=== PATIENT | male | born 1950 | race Caucasian/White ===

== ENCOUNTER 2023-09-21 20:25 | Inpatient (IN) | payer OTHER ==
[2023-09-21] MEDS ORDERED: Ondansetron PF 4 MG/2 ML Vial IVP PRN (22:36)
[2023-09-21] MEDS ORDERED: Dextrose 50% Abboject 50 ML SYRINGE SLOW IVP PRN (22:36)
[2023-09-21] MEDS ORDERED: Senokot S 8.6-50 MG TAB PO PRN (22:36)
[2023-09-21] MEDS ORDERED: Dextrose 5% in Water 1,000 ML IV PRN (22:36)
[2023-09-21] MEDS ORDERED: Glucagon 1 MG/ML KIT IM PRN (22:36)
[2023-09-21] MEDS ORDERED: Calcium Carbonate 500 MG ChewTAB PO PRN (22:36)
[2023-09-21] MEDS ORDERED: Ipratropium/Albuterol 3 ML NEB NEB PRN (22:39)
[2023-09-21] MEDS: methylPREDNISolone Sod Succ 40 MG VIAL IVP SCH (23:23)
[2023-09-21 23:24] LABS: Troponin I Less than 0.010 ng/mL (< 0.028)
[2023-09-21] MEDS: Lisinopril 10 MG TAB PO SCH (23:31)
[2023-09-21] MEDS: Azithromycin 250 MG TAB PO SCH (23:32)
[2023-09-21] MEDS: HumaLOG 300 UNITS/3 ML VIAL SC PRN (23:35)
[2023-09-21 23:37] VITALS: BMI 39.0
[2023-09-22] MEDS: hydrOXYzine 25 MG TAB PO SCH (01:11)
[2023-09-22] MEDS: Ipratropium/Albuterol 3 ML NEB NEB SCH (01:25)
[2023-09-22 03:34] LABS: Anion Gap 17 mmol/L (10-20); BUN (Urea Nitrogen) 18 mg/dL (8.4-25.7); Calc. Creatinine Clearance 122 mL/min (70-130); Calcium 8.8 mg/dL (7.8-10.44); Carbon Dioxide 20 mmol/L (23-31); Chloride 103 mmol/L (98-107); Estimated GFR 81; Glucose 229 mg/dL (83-110); Potassium 4.5 mmol/L (3.5-5.1); Sodium 135 mmol/L (136-145)
[2023-09-22] MEDS: Levothyroxine Sodium 25 MCG TAB PO SCH (05:38)
[2023-09-22] MEDS: metFORMIN 500 MG TAB PO SCH (08:37)
[2023-09-22] MEDS: guaiFENesin ER 600 MG TAB PO SCH (08:39)
[2023-09-22] MEDS: Aspirin 81 mg Enteric Coated Tablet PO SCH (08:39)
[2023-09-22] MEDS: Venlafaxine HCl XR 75 MG CAP PO SCH (08:40)
[2023-09-22] MEDS: Acetylcysteine 800 MG/4 ML VIAL PO SCH (08:41)
[2023-09-22] MEDS: Enoxaparin 40 MG (0.4 mL) SYRINGE SC SCH (08:43)
[2023-09-22 08:55] LABS: Hematocrit 47.7 % (38.8-50.0); Hemoglobin 15.6 g/dL (13.5-17.5); Mean Corpuscular HGB CONC 32.7 g/dL (32.0-36.0); Mean Corpuscular Hemoglobin 31.7 pg (27.0-33.0); Mean Platelet Volume 10.1 fl (7.4-10.4); Platelet Count 310 10x3/uL (150-450); RBC Distribution Width 13.5 % (11.5-14.5); Red Blood Cell (RBC) Count 4.92 10x6/uL (4.32-5.72); White Blood Cell (WBC) Count 14.4 10x3/uL (3.5-10.5)
[2023-09-22 09:14] LABS: MDiff Complete? YES
[2023-09-22 09:17] LABS: Band 1 % (5-11); Lymphocytes 4 % (21-51); Monocytes 1 % (0-10); Neutrophil 94 % (42-75)
[2023-09-22 09:18] LABS: Platelet Adequacy Comment Appears Adequate; RBC Morph Comment Within Normal Limits
[2023-09-22] MEDS: Mometasone/Formoterol 200/5 60 PUFF INH SCH (09:20)
[2023-09-22] MEDS: Benztropine 1 MG TAB PO SCH (22:13)
[2023-09-22] MEDS: Lisinopril 10 MG TAB PO SCH (22:13)
[2023-09-23] MEDS: Perphenazine 2 MG TAB PO SCH (00:02)
[2023-09-23 05:28] LABS: Anion Gap 16 mmol/L (10-20); BUN (Urea Nitrogen) 32 mg/dL (8.4-25.7); Calc. Creatinine Clearance 99 mL/min (70-130); Carbon Dioxide 22 mmol/L (23-31); Chloride 103 mmol/L (98-107); Estimated GFR 63; Glucose 270 mg/dL (83-110); Potassium 5.8 mmol/L (3.5-5.1); Sodium 135 mmol/L (136-145)
[2023-09-23 05:50] LABS: #Monocytes 0.6 10x3/uL (0.0-1.1); #Neutrophils 14.6 10x3/uL (1.5-8.4); %Basophils 0.1 % (0.0-2.0); %Lymphocytes 4.7 % (18.0-47.0); %Monocytes 3.5 % (0.0-10.0); %Neutrophils 91.1 % (40.0-75.0); Hematocrit 44.5 % (38.8-50.0); Hemoglobin 14.3 g/dL (13.5-17.5); Mean Corpuscular HGB CONC 32.1 g/dL (32.0-36.0); Mean Corpuscular Hemoglobin 31.2 pg (27.0-33.0); Mean Corpuscular Volume 97.2 fl (81.2-95.1); Mean Platelet Volume 10.4 fl (7.4-10.4); Platelet Count 322 10x3/uL (150-450); RBC Distribution Width 13.8 % (11.5-14.5); Red Blood Cell (RBC) Count 4.58 10x6/uL (4.32-5.72); White Blood Cell (WBC) Count 16.1 10x3/uL (3.5-10.5)
[2023-09-23] MEDS: Sodium Polystyrene Sulfonate 15 GM (60 mL) BOT PO SCH (08:00)
[2023-09-23] MEDS: Acetaminophen 325 MG TAB PO PRN (09:10)
[2023-09-23] MEDS: Gabapentin 300 MG CAP PO SCH (15:25)
[2023-09-23] MEDS: Benzonatate 100 MG CAP PO SCH (15:28)
[2023-09-23 19:38] LABS: Anion Gap 14 mmol/L (10-20); BUN (Urea Nitrogen) 32 mg/dL (8.4-25.7); Calc. Creatinine Clearance 112 mL/min (70-130); Calcium 8.6 mg/dL (7.8-10.44); Carbon Dioxide 25 mmol/L (23-31); Chloride 100 mmol/L (98-107); Estimated GFR 73; Glucose 271 mg/dL (83-110); Potassium 4.8 mmol/L (3.5-5.1); Sodium 134 mmol/L (136-145)
[2023-09-24 05:44] LABS: #Monocytes 0.7 10x3/uL (0.0-1.1); #Neutrophils 12.9 10x3/uL (1.5-8.4); %Basophils 0.1 % (0.0-2.0); %Lymphocytes 5.4 % (18.0-47.0); %Monocytes 4.6 % (0.0-10.0); %Neutrophils 88.8 % (40.0-75.0); Hematocrit 46.8 % (38.8-50.0); Hemoglobin 15.1 g/dL (13.5-17.5); Mean Corpuscular HGB CONC 32.3 g/dL (32.0-36.0); Mean Corpuscular Hemoglobin 32.4 pg (27.0-33.0); Mean Corpuscular Volume 100.4 fl (81.2-95.1); Mean Platelet Volume 10.8 fl (7.4-10.4); Platelet Count 302 10x3/uL (150-450); Red Blood Cell (RBC) Count 4.66 10x6/uL (4.32-5.72); White Blood Cell (WBC) Count 14.5 10x3/uL (3.5-10.5)
[2023-09-24 05:55] LABS: Anion Gap 17 mmol/L (10-20); BUN (Urea Nitrogen) 29 mg/dL (8.4-25.7); Calc. Creatinine Clearance 114 mL/min (70-130); Carbon Dioxide 25 mmol/L (23-31); Chloride 101 mmol/L (98-107); Estimated GFR 74; Glucose 271 mg/dL (83-110); Potassium 5.9 mmol/L (3.5-5.1); Sodium 137 mmol/L (136-145)
[2023-09-24 06:00] LABS: Magnesium 2.6 mg/dL (1.6-2.6)
[2023-09-24] MEDS: Venlafaxine HCl XR 75 MG CAP PO SCH (09:21)
[2023-09-24] MEDS: Amlodipine 5 MG TAB PO SCH (09:22)
[2023-09-24 16:04] LABS: PTT 22.2 sec (22.0-33.0); Prothrombin Time 10.4 sec (9.5-12.1)
[2023-09-24 16:09] LABS: Troponin I 0.025 ng/mL (< 0.028)
[2023-09-24 16:22] LABS: Anion Gap 19 mmol/L (10-20); BUN (Urea Nitrogen) 31 mg/dL (8.4-25.7); Calc. Creatinine Clearance 113 mL/min (70-130); Calcium 8.7 mg/dL (7.8-10.44); Carbon Dioxide 19 mmol/L (23-31); Chloride 102 mmol/L (98-107); Estimated GFR 74; Glucose 215 mg/dL (83-110); Sodium 134 mmol/L (136-145)
[2023-09-24 16:32] LABS: Potassium 5.2 mmol/L (3.5-5.1)
[2023-09-24 17:53] LABS: Troponin I Less than 0.010 ng/mL (< 0.028)
[2023-09-24] MEDS: Gabapentin 300 MG CAP PO SCH (22:17)
[2023-09-24] MEDS: Benzonatate 100 MG CAP PO SCH (22:46)
[2023-09-25 05:10] LABS: #Monocytes 1.6 10x3/uL (0.0-1.1); #Neutrophils 9.7 10x3/uL (1.5-8.4); %Basophils 0.2 % (0.0-2.0); %Lymphocytes 19.2 % (18.0-47.0); %Neutrophils 69.2 % (40.0-75.0); Hematocrit 44.6 % (38.8-50.0); Hemoglobin 14.4 g/dL (13.5-17.5); Mean Corpuscular HGB CONC 32.3 g/dL (32.0-36.0); Mean Corpuscular Hemoglobin 32.6 pg (27.0-33.0); Mean Corpuscular Volume 100.9 fl (81.2-95.1); Mean Platelet Volume 10.6 fl (7.4-10.4); Platelet Count 259 10x3/uL (150-450); RBC Distribution Width 13.7 % (11.5-14.5); Red Blood Cell (RBC) Count 4.42 10x6/uL (4.32-5.72); White Blood Cell (WBC) Count 14.1 10x3/uL (3.5-10.5)
[2023-09-25 05:14] LABS: Anion Gap 11 mmol/L (10-20); BUN (Urea Nitrogen) 32 mg/dL (8.4-25.7); Calc. Creatinine Clearance 121 mL/min (70-130); Calcium 8.4 mg/dL (7.8-10.44); Carbon Dioxide 29 mmol/L (23-31); Chloride 101 mmol/L (98-107); Estimated GFR 80; Glucose 128 mg/dL (83-110); Magnesium 2.3 mg/dL (1.6-2.6); Potassium 4.3 mmol/L (3.5-5.1); Sodium 137 mmol/L (136-145)
[2023-09-25] MEDS: Gabapentin 300 MG CAP PO SCH (08:59)
[2023-09-25] MEDS: Benzonatate 100 MG CAP PO SCH (08:59)
[2023-09-25] MEDS: predniSONE 20 MG TAB PO SCH (09:00)
[2023-09-25] MEDS: Baclofen 10 MG TAB PO SCH (10:18)
[2023-09-25] MEDS: Lidocaine 4% Patch TD SCH (10:18)
[2023-09-25] MEDS: Lisinopril 5 MG TAB PO SCH (16:10)
[2023-09-25] MEDS: Atorvastatin Calcium 20 MG TAB PO SCH (21:03)
[2023-09-25] MEDS: Transdermal Patch Removal TOP SCH (23:12)
[2023-09-26 04:43] LABS: Cardiac Risk 4.5 (Less than 4.5); Cholesterol 147 mg/dl (< 200 Desired); HDL Cholesterol 33 mg/dL (>60 Neg Risk); LDL Cholesterol, Calculated 87 mg/dL; Magnesium 2.1 mg/dL (1.6-2.6); Triglycerides 135 mg/dL (Less than 150)
[2023-09-26] MEDS: Lisinopril 5 MG TAB PO SCH (09:10)
[2023-09-26] MEDS: metFORMIN 500 MG TAB PO SCH (09:11)
[2023-09-27 03:52] LABS: #Monocytes 1.1 10x3/uL (0.0-1.1); #Neutrophils 10.4 10x3/uL (1.5-8.4); %Basophils 0.1 % (0.0-2.0); %Eosinophils 0.3 % (0.0-6.0); %Lymphocytes 18.8 % (18.0-47.0); %Monocytes 7.5 % (0.0-10.0); %Neutrophils 72.7 % (40.0-75.0); Hematocrit 44.6 % (38.8-50.0); Hemoglobin 14.6 g/dL (13.5-17.5); Mean Corpuscular HGB CONC 32.7 g/dL (32.0-36.0); Mean Corpuscular Hemoglobin 32.4 pg (27.0-33.0); Mean Corpuscular Volume 99.1 fl (81.2-95.1); Mean Platelet Volume 10.7 fl (7.4-10.4); Platelet Count 268 10x3/uL (150-450); RBC Distribution Width 13.3 % (11.5-14.5); White Blood Cell (WBC) Count 14.3 10x3/uL (3.5-10.5)
[2023-09-27 04:01] LABS: Anion Gap 9 mmol/L (10-20); BUN (Urea Nitrogen) 23 mg/dL (8.4-25.7); Calc. Creatinine Clearance 132 mL/min (70-130); Calcium 8.6 mg/dL (7.8-10.44); Carbon Dioxide 30 mmol/L (23-31); Chloride 100 mmol/L (98-107); Estimated GFR 88; Glucose 137 mg/dL (83-110); Potassium 4.4 mmol/L (3.5-5.1); Sodium 135 mmol/L (136-145)
[2023-09-27] MEDS: Guaifenesin DM 100-10/5 ML UDCUP PO PRN (06:14)
[2023-09-27] MEDS ORDERED: Artificial Tear Sol 15 ML BOT EA EYE PRN (12:26)
[2023-09-27] MEDS ORDERED: Sodium Chloride 0.65% Nasal 44 ML BOT EA NARE PRN (12:26)
[2023-09-27] MEDS ORDERED: Moisturizing Cream (Eucerin) 113 GM JAR TOP PRN (12:26)
[2023-09-27 16:12] VITALS: BP 130/75; TEMP 99.1
== END 2023-09-27 21:40 | DRG 189 ==
LOC: OBSVTOIN 21:40 → EEVIPCON 21:40 → CSHTELE 21:40
PROVIDERS: ADMIT Student in an Organized Health Care Education/Training Program; ATTEND Family Medicine
DX: J96.01 Acute respiratory failure with hypoxia (principal); J44.1 Chronic obstructive pulmonary disease with (acute) exacerbation; E87.1 Hypo-osmolality and hyponatremia; J98.11 Atelectasis; E03.9 Hypothyroidism, unspecified; E78.5 Hyperlipidemia, unspecified; I10 Essential (primary) hypertension; M19.90 Unspecified osteoarthritis, unspecified site; F32.A Depression, unspecified; E11.9 Type 2 diabetes mellitus without complications; R07.89 Other chest pain; F43.10 Post-traumatic stress disorder, unspecified; E66.9 Obesity, unspecified; Z68.39 Body mass index [BMI] 39.0-39.9, adult; E87.5 Hyperkalemia; G62.9 Polyneuropathy, unspecified; Z90.49 Acquired absence of other specified parts of digestive tract; Z98.890 Other specified postprocedural states; Z11.52 Encounter for screening for COVID-19; Z87.891 Personal history of nicotine dependence
CPT/HCPCS: 36415; 36416; 71045; 71250; 80048; 80061; 83735; 84443; 84484; 85025; 85379; 85610; 85730; 86850; 86900; 86901; 93005; 93010; 93306; 94640; 94664; 94760; 94762; J1650; J1815; J2920; J7512; J7620; Q0175

== ENCOUNTER 2025-07-07 09:55 | Emergency (ER) | payer OTHER ==
[2025-07-07 10:51] LABS: #Basophils 0.03 10x3/uL (0.0-0.2); #Eosinophils 0.12 10x3/uL (0.0-0.5); #Monocytes 0.90 10x3/uL (0.0-1.1); #Neutrophils 7.46 10x3/uL (1.5-8.4); %Basophils 0.3 % (0.0-2.0); %Eosinophils 1.2 % (0.0-6.0); %Lymphocytes 14.9 % (18.0-47.0); %Monocytes 9.0 % (0.0-10.0); %Neutrophils 74.3 % (40.0-75.0); Hematocrit 37.5 % (38.8-50.0); Hemoglobin 12.1 g/dL (13.5-17.5); Mean Corpuscular Hemoglobin 31.4 pg (27.0-33.0); Mean Corpuscular Volume 97.4 fL (81.2-95.1); Platelet Count 290 10x3/uL (150-450); Red Blood Cell (RBC) Count 3.85 10x6/uL (4.32-5.72); White Blood Cell (WBC) Count 10.03 10x3/uL (3.5-10.5)
[2025-07-07 11:07] LABS: ALT (SGPT) 38 U/L (Less than 45); AST (SGOT) 25 U/L (11-34); Albumin 3.5 g/dL (3.1-4.5); Alkaline Phosphatase 71 U/L (40-110); Anion Gap 13 mmol/L (10-20); BUN (Urea Nitrogen) 22 mg/dL (8.4-25.7); Bilirubin, Total 0.3 mg/dL (0.3-1.2); Calc. Creatinine Clearance 0 mL/min (70-130); Calcium 8.7 mg/dL (7.8-10.44); Carbon Dioxide 30 mmol/L (23-31); Chloride 102 mmol/L (98-107); Globulin 2.9 g/dL (2.4-3.5); Glucose 152 mg/dL (83-110); Potassium 5.1 mmol/L (3.5-5.1); Sodium 140 mmol/L (136-145)
[2025-07-07 11:13] LABS: Troponin I 0.012 ng/mL (< 0.028)
[2025-07-07] MEDS ORDERED: Dexamethasone 10 MG/ML VIAL ONE (11:44)
== END 2025-07-07 13:05 | disposition home or self-care (01) ==
LOC: CSHERS 09:55 → EEVIPCON 09:55 → CSHERS 13:05
DX: J44.1 Chronic obstructive pulmonary disease with (acute) exacerbation (principal); E11.9 Type 2 diabetes mellitus without complications; I10 Essential (primary) hypertension; Z87.891 Personal history of nicotine dependence
CPT/HCPCS: 36415; 71045; 80053; 84484; 85025; 93005; 94640; 96374; J1100